=== PATIENT | female | born 1970 | race Caucasian/White ===

== ENCOUNTER 2016-12-28 14:28 | Emergency (ER) | payer OTHER ==
[~2016-12-28 14:28] MED LIST: HYDR-79 PO; HYDR-971 PO; MULT-460 PO
[2016-12-28 14:43] VITALS: BP 139/81
--- NOTE | 2016-12-28 15:04 | RAD ---
Right foot, 3 views, 12/28/2016: History: Foot pain, trauma No fracture or dislocation is identified. There are mild degenerative changes at scattered interphalangeal joints and the first MTP joint. There is mild subcutaneous edema. IMPRESSION: No acute bony abnormality is detected.
--- NOTE | 2016-12-28 15:14 | PHYS DOC ---
General Chief Complaint: FOOT INJURY PAIN Stated Complaint: FOOT INJURY Time Seen by MD: 14:41 Source: patient Exam Limitations: no limitations Problems: History of Present Illness Initial Comments Patient is a 46-year-old female who comes to the ED complaining of right foot injury. Patient states earlier today she slipped on an ice cube at home and "twisted her foot." She denies any fall but states her foot twisted she thinks in an inversion mechanism, she complains of severe pain across the top of her arch and at the plantar surface of the arch. She has walked on it but states it hurts too badly and has requested crutches. She denies numbness tingling weakness or radiating symptoms pain is described as 10 out of 10 with jarring and movement, mild to moderate at rest. No pre-arrival treatment she denies any other injury resulted from the fall. Onset: this afternoon Severity: mild Pain/Injury Location: right foot Method of Injury: twisted Modifying Factors: worse with jarring, worse with movement, improves with rest Allergies: Coded Allergies: levofloxacin (Verified Allergy, Mild, n/v, 04/16/13) Past Medical History Medical History: no pertinent history Surgical History: noncontributory Social History Smoker: non-smoker Alcohol: none Drugs: none Review of Systems Constitutional: denies chills, denies fever Respiratory: denies cough, denies shortness of breath Cardiovascular: denies chest pain, denies palpitations Gastrointestinal: denies nausea, denies vomiting Musculoskeletal: see HPI Skin: denies change in color, denies lesions, denies lumps Psychiatric/Neurological: see HPI Physical Exam General Appearance: WD/WN, no apparent distress Cardiovascular/Respiratory: normal peripheral pulses, no respiratory distress Back: no CVA tenderness, no vertebral tenderness Legs: bilateral leg non-tender, bilateral leg normal inspection, bilateral leg normal range of motion, bilateral leg no evidence of injury Ankles: bilateral ankle non-tender, bilateral ankle normal inspection, bilateral ankle normal range of motion, bilateral ankle no evidence of injury Feet: left foot non-tender, left foot normal inspection, left foot normal range of motion, left foot no evidence of injury, right foot other (no obvious swelling or bruising, exquisite tenderness to palpation at the mid foot no palpable bony deformity. Ligaments and tendons appear to be intact in the extremity is neurovascularly intact there are skin breaks.) Neurologic/Tendon: normal sensation, normal motor functions, normal tendon functions, responds to pain, no evidence tendon injury Psychiatric: alert, oriented x 3 Skin: normal color, warm/dry Orders, Labs, Meds PATIENT: DAVID PEDROZA ACCOUNT: [id number] : 1970 LOCATION: ER AGE: 46 SEX: F EXAM STATUS: REG ER ORD. PHYSICIAN: ADILENE ELDRIDGE DO REASON: trauma/pain PROCEDURE: FOOT RIGHT 3V Right foot, 3 views, 12/28/2016: History: Foot pain, trauma No fracture or dislocation is identified. There are mild degenerative changes at scattered interphalangeal joints and the first MTP joint. There is mild subcutaneous edema. IMPRESSION: No acute bony abnormality is detected. DICTATED AND SIGNED BY: TAMMY FAJARDO MD DATE: 12/28/16 1501 CC: PCP,UNKNOWN; ADILENE ELDRIDGE DO ~ Departure Time of Disposition: 15:32 Disposition: 01 HOME, SELF-CARE Diagnosis: right midfoot sprain Condition: GOOD Patient Instructions: Foot Sprain-Brief, RICE - Routine Care for Injuries, Easy -to-Read Additional Instructions: RICE, see handout. Wear the postop shoe and use crutches as needed for symptom control. Prescription: Naprosyn, Frederick 5 mg quantity 10 Follow-up with your doctor in 1-2 weeks for recheck. Return to ED with or changing symptoms. ADILENE ELDRIDGE DO Dec 28, 2016 15:14
[2016-12-28] MEDS ORDERED: HYDR-971 PO (15:28)
[2016-12-28] MEDS ORDERED: NAPR500T PO (15:28)
== END 2016-12-28 15:56 | disposition home or self-care (01) ==
LOC: ER 14:28
DX: S93.691A Other sprain of right foot, initial encounter (principal); Z88.1 Allergy status to other antibiotic agents; X58.XXXA Exposure to other specified factors, initial encounter; Y93.89 Activity, other specified; Y99.8 Other external cause status; Y92.89 Other specified places as the place of occurrence of the external cause
CPT/HCPCS: 73630; 99284

== ENCOUNTER 2018-12-14 06:25 | Emergency (ER) | payer OTHER ==
[~2018-12-14] VITALS: Ht 172.7 cm; Wt 126.5 kg
[~2018-12-14 06:25] MED LIST changes: +HYDR-1179 PO; +HYDR-3165 PO; -HYDR-79 PO; -HYDR-971 PO; +NAPR-683 PO
[2018-12-14] MEDS ORDERED: CETI10TA22 PO (06:49)
[2018-12-14] MEDS ORDERED: [UNRECOGNIZED DRUG - OTHER] (06:50)
[2018-12-14] MEDS ORDERED: albuterol inhaler (06:50)
[2018-12-14] MEDS ORDERED: IPRATRPIUM/ALBUTEROL 0.5/2.5MG 3 ML NEBU. NEB ONE (07:00)
[2018-12-14 07:20] VITALS: BP 150/88
[2018-12-14] MEDS ORDERED: MONT10TA80 PO (07:37)
[2018-12-14] MEDS ORDERED: METH4TAB2 PO (07:37)
[2018-12-14] MEDS ORDERED: AZIT250T6 PO (07:37)
--- NOTE | 2018-12-14 07:37 | RAD ---
CHEST PA LATERAL Clinical indications: Cough. COMPARISON: April 16, 2013. Findings: No acute lung infiltrate or pleural effusion or pulmonary edema or lung mass or pneumothorax is seen. The heart size, pulmonary vasculature, mediastinum and both jefry are unremarkable. The osseous structures appear intact. Impression: No acute radiographic abnormality is seen. Electronically signed by: Will Odonnell MD (12/14/2018 7:34 AM) [facility]
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
== END 2018-12-14 07:40 | disposition home or self-care (01) ==
LOC: ER 06:25
DX: R05 Cough (principal); R51 Headache; R06.02 Shortness of breath; E03.9 Hypothyroidism, unspecified; Z88.1 Allergy status to other antibiotic agents
CPT/HCPCS: 71046; 94640; 99284; J7620

== ENCOUNTER → 2019-01-12 | Outpatient (CLI) | payer OTHER ==
[2018-12-14 07:20] VITALS: BP 150/88
[~2019-01-12] MED LIST changes: +AZIT250T6 PO; +CETI10TA22 PO; +IOHEXOL 350 MG/ML 100 ML VIAL. IV ONE; +METH4TAB2 PO; +MONT10TA80 PO; +[UNRECOGNIZED DRUG - OTHER]; +albuterol inhaler
--- NOTE | 2019-01-12 14:29 | RAD ---
PQRS Compliance Statement: One or more of the following individualized dose reduction techniques were utilized for this examination: 1. Automated exposure control 2. Adjustment of the mA and/or kV according to patient size 3. Use of iterative reconstruction technique CT CHEST W/CONTRAST 01/12/2019 12:00 AM Indication: Shortness of breath. COMPARISON: None available. TECHNIQUE: Multiple axial CT images of the chest were obtained after the intravenous administration of nonionic contrast. Coronal and sagittal reformats are provided. FINDINGS: Thyroid gland is normal in appearance. There is a right hilar lymph node measuring 13 mm by short axis (series 5, image 32). Heart size is enlarged. No pericardial effusion. Thoracic aorta is normal in course and caliber. Opacified portions of the pulmonary arteries appear patent without filling defect. Limited evaluation of the segmental and subsegmental pulmonary arteries secondary restrained motion. There is mild to moderate pulmonary vascular congestion. Scattered perihilar groundglass changes may represent areas of alveolar edema. No suspicious solid noncalcified pulmonary nodule is visualized. No pleural effusions. No pneumothorax. Gallbladder surgically absent. Otherwise, visualized portions of the upper abdomen appear normal. No suspicious osseous normality is identified. IMPRESSION: Cardiomegaly with mild to moderate pulmonary vascular congestion and alveolar airspace disease may reflect pulmonary edema secondary to congestive heart failure. Short interval follow-up radiograph may be of benefit. Borderline right hilar lymph node may be reactive. 3 month follow-up chest CT may be of benefit to ensure resolution. Electronically signed by: Uma Grover MD (01/12/2019 2:26 PM) [facility]
== END | disposition home or self-care (01) ==
LOC: CT 13:01
PROVIDERS: ATTEND Physician Assistant
DX: J18.9 Pneumonia, unspecified organism (principal); I51.7 Cardiomegaly; R09.89 Other specified symptoms and signs involving the circulatory and respiratory systems
CPT/HCPCS: 71260; Q9967; 71275